=== PATIENT | female | born 1990 | race African-American/Black ===

== ENCOUNTER 2019-03-16 08:18 | Emergency (ER) | payer OTHER ==
[2019-03-16 08:30] VITALS: BP 112/51; PULSE 74; TEMP 98.1; BMI 24.3
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
== END 2019-03-16 09:40 | disposition home or self-care (01) ==
LOC: JER 08:18 → JERFT 08:18
DX: Z04.1 Encounter for examination and observation following transport accident (principal); V49.49XA Driver injured in collision with other motor vehicles in traffic accident, initial encounter; Y93.89 Activity, other specified; Y92.89 Other specified places as the place of occurrence of the external cause; Y99.8 Other external cause status; Y92.488 Other paved roadways as the place of occurrence of the external cause
CPT/HCPCS: 99281-25